=== PATIENT | female | born 1985 | race Caucasian/White ===

== ENCOUNTER 2017-02-04 07:24 | Emergency (ER) | payer MEDICAID ==
[~2017-02-04] VITALS: Ht 160 cm; Wt 77.0 kg
[~2017-02-04 07:24] MED LIST: PRENATAL VITS
[2017-02-04 07:28] VITALS: BP 126/73
[2017-02-04] MEDS ORDERED: SILVER SULFADIAZINE 1% CREAM 50GM TOP STA (07:52)
[2017-02-04] MEDS ORDERED: HYDROCODONE/ACETAMINOPHEN 10/325MG TABLET PO ONE (08:00)
[2017-02-04] MEDS ORDERED: KETOROLAC 60MG/2ML VIAL IM ONE (08:00)
[2017-02-04] MEDS ORDERED: ONDANSETRON 4MG ODT PO ONE (08:00)
== END 2017-02-04 08:32 | disposition home or self-care (01) ==
LOC: ER 07:36
DX: T23.001A Burn of unspecified degree of right hand, unspecified site, initial encounter (principal); Z98.890 Other specified postprocedural states; X11.8XXA Contact with other hot tap-water, initial encounter; Y93.89 Activity, other specified; Y92.89 Other specified places as the place of occurrence of the external cause; Y99.8 Other external cause status
CPT/HCPCS: 16000; 81025; 96372; 99284; J1885; X7700; Z7610